=== PATIENT | male | born 1965 | race Caucasian/White ===

== ENCOUNTER 2018-11-15 22:12 | Emergency (ER) | payer BC ==
--- NOTE | 2018-11-15 22:36 | EDM.PDOC ---
ED HPI GENERAL MEDICAL PROBLEM - General Chief Complaint: Upper Extremity Injury/Pain Stated Complaint: WEAK Time Seen by Provider: 11/15/18 22:34 Source of Information: Reports: Patient - History of Present Illness INITIAL COMMENTS - FREE TEXT/NARRATIVE: HISTORY AND PHYSICAL: History of present illness: [Patient presents clinically intoxicated He has several complaints, the first is generalized weakness/fatigue over the last 2 weeks as well as 2 weeks of abdominal pain. 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 and he has some pain associated with the extensor muscles of the left forearm otherwise his exam is normal mild pain consistent with spasm I can reproduce and appreciate spasm over the extensors on the forearm no other injury or trauma, the entire limb is neurovascularly intact with equal investigations chief strength and full range of motion shoulder elbow wrist no redness warmth or swelling no open lesion or bruising ] No fever nausea vomiting chills sweats no chest pain shortness of breath headache dizziness palpitation no bowel or urine symptoms Review of systems: As per history of present illness and below otherwise all systems reviewed and negative. Past medical history: As per history of present illness and as reviewed below otherwise noncontributory. Surgical history: As per history of present illness and as reviewed below otherwise noncontributory. Social history: No reported history of drug or alcohol abuse. Family history: As per history of present illness and as reviewed below otherwise noncontributory. Physical exam: HEENT: Atraumatic, normocephalic, pupils reactive, negative for conjunctival pallor or scleral icterus, mucous membranes moist, throat clear, neck supple, nontender, trachea midline. Lungs: Clear to auscultation, breath sounds equal bilaterally, chest nontender. Heart: S1S2, regular, negative for clicks, rubs, or JVD. Abdomen: Soft, nondistended, tender with deep palpation on the right and left lower quadrants no guarding or rebound Negative for masses or hepatosplenomegaly. Negative for costovertebral tenderness. Pelvis: Stable nontender. Genitourinary: Deferred. Rectal: Deferred. Extremities: Atraumatic, negative for cords or calf pain. Neurovascular unremarkable. Neuro: Awake, alert, oriented. Cranial nerves II through XII unremarkable. Cerebellum unremarkable. Motor and sensory unremarkable throughout. Exam nonfocal. Diagnostics: [CBC CMP UA lipase troponin and CPK Chest [address] abdomen pelvis with contrast ] Therapeutics: [ normal saline ]Profile 100 by mouth now and twice a day #20 no refill Impression: [ alcohol intoxication abdominal pain ]-diverticulitis Muscle spasm left forearm-extensors Definitive disposition and diagnosis as appropriate pending reevaluation and review of above. - Related Data Allergies Allergy/AdvReac Type Severity Reaction Status Date / Time No Known Allergies Allergy Verified 11/15/18 23:23 Home Meds: Home Meds . [No Known Home Meds] 11/15/18 [History] Review of Systems - Review of Systems Review Of Systems: See Below ED EXAM, GENERAL - Physical Exam Exam: See Below Course - Vital Signs Last Recorded V/S: Last Vital Signs Temp 96.9 F 11/15/18 22:16 Pulse 89 11/15/18 23:29 Resp 18 11/15/18 23:29 BP 116/72 11/15/18 23:29 Pulse Ox 95 11/15/18 23:29 - Orders/Labs/Meds Orders: Active Orders 24 hr Category Date Time Status EKG Documentation Completion [RC] STAT Care 11/15/18 22:17 Active Ciprofloxacin [Ciprofloxacin HCl] Med 11/16/18 00:32 Once 500 mg PO ONETIME ONE Pantoprazole [ProTONIX IV] 80 mg Med 11/15/18 22:39 Active Sodium Chloride 0.9% [Normal Saline] 100 ml IVPUSH BOLUS Medication Orders Pantoprazole Sodium 80 mg/ (Sodium Chloride) 100 mls @ 10 mls/hr IVPUSH BOLUS ONE Stop: 11/16/18 08:38 Last Admin: 11/15/18 23:25 Dose: 10 mls/hr Labs: Laboratory Tests 11/15/18 11/15/18 11/15/18 Range/Units 22:42 22:42 22:42 WBC 5.02 (4.0-11.0) K/uL RBC 4.96 (4.50-5.90) M/uL Hgb 15.3 (13.0-17.0) g/dL Hct 45.4 (38.0-50.0) % MCV 91.5 (80.0-98.0) fL MCH 30.8 (27.0-32.0) pg MCHC 33.7 (31.0-37.0) g/dL RDW Std Deviation 44.2 (28.0-62.0) fl RDW Coeff of Swati 13 (11.0-15.0) % Plt Count 153 (150-400) K/uL MPV 9.80 (7.40-12.00) fL Neut % (Auto) 38.8 L (48.0-80.0) % Lymph % (Auto) 47.6 H (16.0-40.0) % [place] % (Auto) 10.2 (0.0-15.0) % Eos % (Auto) 2.8 (0.0-7.0) % Baso % (Auto) 0.6 (0.0-1.5) % Neut # (Auto) 2.0 (1.4-5.7) K/uL Lymph # (Auto) 2.4 (0.6-2.4) K/uL [place] # (Auto) 0.5 (0.0-0.8) K/uL Eos # (Auto) 0.1 (0.0-0.7) K/uL Baso # (Auto) 0.0 (0.0-0.1) K/uL Nucleated RBC % 0.0 /100WBC Nucleated RBCs # 0 K/uL INR 0.96 Sodium 143 (136-148) mmol/L Potassium 3.4 L (3.5-5.1) mmol/L Chloride 107 (98-107) mmol/L Carbon Dioxide 26.0 (21.0-32.0) mmol/L BUN 15 (7.0-18.0) mg/dL Creatinine 1.0 (0.8-1.3) mg/dL Est Cr Clr Drug Dosing 81.71 mL/min Estimated GFR (MDRD) > 60.0 ml/min Glucose 126 H (74-106) mg/dL Calcium 9.0 (8.5-10.1) mg/dL Total Bilirubin 0.2 (0.2-1.0) mg/dL AST 30 (15-37) IU/L ALT 61 (14-63) IU/L Alkaline Phosphatase 70 (46-116) U/L Creatine Kinase 147 (26-308) U/L Troponin I < 0.050 (0.000-0.056) ng/mL Total Protein 7.7 (6.4-8.2) g/dL Albumin 3.8 (3.4-5.0) g/dL Globulin 3.9 (2.6-4.0) g/dL Albumin/Globulin Ratio 1.0 (0.9-1.6) Lipase 208 (73-393) U/L TSH 3rd Generation 3.16 (0.36-3.74) uIU/mL Urine Color Urine Appearance Urine pH (5.0-8.0) Ur Specific [place] (1.001-1.035) Urine Protein (NEGATIVE) mg/dL Urine Glucose (UA) (NEGATIVE) mg/dL Urine Ketones (NEGATIVE) mg/dL Urine Occult Blood (NEGATIVE) Urine Nitrite (NEGATIVE) Urine Bilirubin (NEGATIVE) Urine Urobilinogen (<2.0) EU/dL Ur Leukocyte Esterase (NEGATIVE) Ethyl Alcohol mg/dL 11/15/18 11/15/18 Range/Units 22:42 23:45 WBC (4.0-11.0) K/uL RBC (4.50-5.90) M/uL Hgb (13.0-17.0) g/dL Hct (38.0-50.0) % MCV (80.0-98.0) fL MCH (27.0-32.0) pg MCHC (31.0-37.0) g/dL RDW Std Deviation (28.0-62.0) fl RDW Coeff of Swati (11.0-15.0) % Plt Count (150-400) K/uL MPV (7.40-12.00) fL Neut % (Auto) (48.0-80.0) % Lymph % (Auto) (16.0-40.0) % [place] % (Auto) (0.0-15.0) % Eos % (Auto) (0.0-7.0) % Baso % (Auto) (0.0-1.5) % Neut # (Auto) (1.4-5.7) K/uL Lymph # (Auto) (0.6-2.4) K/uL [place] # (Auto) (0.0-0.8) K/uL Eos # (Auto) (0.0-0.7) K/uL Baso # (Auto) (0.0-0.1) K/uL Nucleated RBC % /100WBC Nucleated RBCs # K/uL INR Sodium (136-148) mmol/L Potassium (3.5-5.1) mmol/L Chloride (98-107) mmol/L Carbon Dioxide (21.0-32.0) mmol/L BUN (7.0-18.0) mg/dL Creatinine (0.8-1.3) mg/dL Est Cr Clr Drug Dosing mL/min Estimated GFR (MDRD) ml/min Glucose (74-106) mg/dL Calcium (8.5-10.1) mg/dL Total Bilirubin (0.2-1.0) mg/dL AST (15-37) IU/L ALT (14-63) IU/L Alkaline Phosphatase (46-116) U/L Creatine Kinase (26-308) U/L Troponin I (0.000-0.056) ng/mL Total Protein (6.4-8.2) g/dL Albumin (3.4-5.0) g/dL Globulin (2.6-4.0) g/dL Albumin/Globulin Ratio (0.9-1.6) Lipase (73-393) U/L TSH 3rd Generation (0.36-3.74) uIU/mL Urine Color YELLOW Urine Appearance CLEAR Urine pH 5.0 (5.0-8.0) Ur Specific [place] 1.020 (1.001-1.035) Urine Protein NEGATIVE (NEGATIVE) mg/dL Urine Glucose (UA) NEGATIVE (NEGATIVE) mg/dL Urine Ketones NEGATIVE (NEGATIVE) mg/dL Urine Occult Blood NEGATIVE (NEGATIVE) Urine Nitrite NEGATIVE (NEGATIVE) Urine Bilirubin NEGATIVE (NEGATIVE) Urine Urobilinogen 0.2 (<2.0) EU/dL Ur Leukocyte Esterase NEGATIVE (NEGATIVE) Ethyl Alcohol 207 mg/dL Meds: Medications Generic Name Dose Route Start Last Admin Trade Name Freq PRN Reason Stop Dose Admin Pantoprazole Sodium 80 mg/ 100 mls @ 10 mls/hr 11/15/18 22:39 11/15/18 23:25 Sodium Chloride IVPUSH 11/16/18 08:38 10 mls/hr BOLUS ONE Administration Discontinued Medications Generic Name Dose Route Start Last Admin Trade Name Freq PRN Reason Stop Dose Admin Iopamidol 100 ml 11/15/18 23:38 11/15/18 23:58 Isovue-370 (76%) IVPUSH 11/15/18 23:39 100 ml ONETIME ONE Administration Pantoprazole Sodium Confirm 11/15/18 23:09 11/15/18 23:56 Protonix Iv Administered 11/15/18 23:10 Not Given Dose 80 mg .ROUTE .STK-MED ONE Departure - Departure Time of Disposition: 00:33 Disposition: Home, Self-Care 01 Condition: Good Clinical Impression: Diverticulitis, Muscle spasm - Discharge Information Referrals: PCP,None [Primary Care Provider] - Forms: ED Department Discharge Additional Instructions: Medication as prescribed Return if symptoms persist or worsen Patient and his significant other will be taking a cab home Follow-up with primary care in 2 weeks sooner as needed [facility] [address] [place] [id number] The following information is given to patients seen in the emergency department who are being discharged to home. This information is to outline your options for follow-up care. We provide all patients seen in our emergency department with a follow-up referral. The need for follow-up, as well as the timing and circumstances, are variable depending upon the specifics of your emergency department visit. If you don't have a primary care physician on staff, we will provide you with a referral. We always advise you to contact your personal physician following an emergency department visit to inform them of the circumstance of the visit and for follow-up with them and/or the need for any referrals to a consulting specialist. The emergency department will also refer you to a specialist when appropriate. This referral assures that you have the opportunity for follow-up care with a specialist. All of these measure are taken in an effort to provide you with optimal care, which includes your follow-up. Under all circumstances we always encourage you to contact your private physician who remains a resource for coordinating your care. When calling for follow-up care, please make the office aware that this follow-up is from your recent emergency room visit. If for any reason you are refused follow-up, please contact the [facility] emergency department at and asked to speak to the emergency department charge nurse. - My Orders Last 24 Hours: My Active Orders 11/15/18 22:17 EKG Documentation Completion [RC] STAT 11/15/18 22:39 Pantoprazole [ProTONIX IV] 80 mg Sodium Chloride 0.9% [Normal Saline] 100 ml IVPUSH BOLUS 11/16/18 00:32 Ciprofloxacin [Ciprofloxacin HCl] 500 mg PO ONETIME ONE - Assessment/Plan Last 24 Hours: My Active Orders 11/15/18 22:17 EKG Documentation Completion [RC] STAT 11/15/18 22:39 Pantoprazole [ProTONIX IV] 80 mg Sodium Chloride 0.9% [Normal Saline] 100 ml IVPUSH BOLUS 11/16/18 00:32 Ciprofloxacin [Ciprofloxacin HCl] 500 mg PO ONETIME ONE
[2018-11-15] MEDS ORDERED: Pantoprazole 80 MG in Sodium Chloride 0.9% 100 ML IVPUSH ONE (22:39)
--- NOTE | 2018-11-15 22:59 | CR ---
Indication: Abdominal pain. Fatigue. Technique: A single AP portable view of the chest was obtained. Comparison: None Findings: The heart is borderline in size. The lungs are clear. No infiltrate, pleural effusion, or pneumothorax is identified. Impression: Borderline cardiomegaly. Dictated by Oly An MD @ Nov 15 2018 10:57PM Signed by Dr. Oly An @ Nov 15 2018 10:57PM
[2018-11-15] MEDS ORDERED: Pantoprazole 40 MG Vial ONE (23:09)
[2018-11-15 23:20] LABS: CHLORIDE,CL 107 mmol/L (98-107); SODIUM,NA 143 mmol/L (136-148)
[2018-11-15] MEDS ORDERED: Iopamidol 755 Mg/ML 100 ML Bottle IVPUSH ONE (23:38)
--- NOTE | 2018-11-16 00:19 | CT ---
INDICATION: Abdominal pain TECHNIQUE: CT Abdomen and pelvis with i.v. contrast. Coronal and sagittal reformats were obtained. CONTRAST: 100 mL Isovue 370 COMPARISON: None FINDINGS: Lower chest: Unremarkable. Liver: Mild fatty infiltration of the right lobe of the liver seen. Spleen: Unremarkable. Pancreas: Unremarkable. Gallbladder: Unremarkable. Kidney: Unremarkable. No kidney or ureteral stones or obstruction seen. Adrenal: Unremarkable. Bowel: The sigmoid colon is highly redundant and has focal wall thickening with surrounding inflammatory changes near the superior turn. The appendix is normal in appearance and size. Vascular: Unremarkable. Lymph: Unremarkable. Peritoneum: Unremarkable. No pneumoperitoneum is seen. No significant ascites is noted. Pelvis: Mild diffuse bladder wall thickening is noted. Soft tissue: Unremarkable. Bone: Unremarkable for age. IMPRESSIONS: 1. The sigmoid colon is highly redundant and has focal wall thickening with surrounding inflammatory changes near the superior turn. Findings are likely due to acute diverticulitis. 2. Mild diffuse bladder wall thickening is noted. This may be due to urinary tract infection, or cystitis. Dictated by Johnie Rich MD @ 11/16/2018 12:16:09 AM Please note that all CT scans at this facility use dose modulation, iterative reconstruction, and/or weight-based dosing when appropriate to reduce radiation dose to as low as reasonably achievable. Dictated by: Johnie Rich MD @ 11/16/2018 00:16:17 (Electronically Signed)
[2018-11-16] MEDS ORDERED: Ciprofloxacin 500 MG Tab PO ONE (00:32)
== END 2018-11-16 00:58 | disposition home or self-care (01) ==
LOC: MW.ED 22:12
DX: K57.32 Diverticulitis of large intestine without perforation or abscess without bleeding (principal); M62.838 Other muscle spasm; F10.129 Alcohol abuse with intoxication, unspecified; Y90.7 Blood alcohol level of 200-239 mg/100 ml
CPT/HCPCS: 36415; 71045; 74177; 80053; 81003; 82550; 83690; 84443; 84484; 85025; 85610; 93005; 96374; 99284; A9270; C9113; G0480; J7030; Q9967

== ENCOUNTER 2020-04-16 13:35 | Emergency (ER) | payer BC ==
[2020-04-16] MEDS ORDERED: Sodium Chloride 0.9% 2.5 ML Syringe FLUSH PRN (13:37)
[2020-04-16] MEDS ORDERED: Sodium Chloride 0.9% 10 ML Syringe FLUSH PRN (13:37)
[2020-04-16] MEDS ORDERED: LORazepam 2 MG/ML SDV IVPUSH ONE (13:37)
[2020-04-16] MEDS ORDERED: Sodium Chloride 0.9% 1,000 ML IV ONE (13:37)
[2020-04-16] MEDS ORDERED: Diphtheria,Pertussis(Acell),Tetanus Vaccine 0.5 ML Syringe IM ONE ×2 (13:41→14:06)
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
[2020-04-16 14:20] LABS: BLOOD UREA NITROGEN,BUN 11 mg/dL (7.0-18.0); CARBON DIOXIDE,CO2 27.2 mmol/L (21.0-32.0); CHLORIDE,CL 102 mmol/L (98-107); GLUCOSE RANDOM 94 mg/dL (74-106); POTASSIUM,K 3.8 mmol/L (3.5-5.1); SODIUM,NA 141 mmol/L (136-148)
--- NOTE | 2020-04-16 14:22 | CT ---
INDICATION: Patient fell today. Acute mental status changes. Trauma. Poor historian due to intoxication. TECHNIQUE: CT head without IV contrast. FINDINGS: No intracranial hemorrhage, edema, or mass effect. Small to moderate amounts of loculated fluid and nodular mucosal thickening in the maxillary sinuses with probable retention cyst in the inferior left maxillary sinus. Large amount of fluid in the right sphenoid sinus with associated mucosal thickening. Small amount of fluid mucosal thickening left sphenoid sinus. Minimal mucosal thickening in the left frontal sinus. Small amounts of fluid and mucosal thickening in a few ethmoidal sinuses. Findings consistent with mild to moderate sinusitis. No intracranial hemorrhage, edema, or mass effect. Mild cerebral and cerebellar atrophy. Remainder negative. IMPRESSION: 1. No acute intracranial disease including no intracranial hemorrhage. 2. Mild cerebral and cerebral atrophy. 3. Hjlb-yi-jyrgqvko sinusitis. Please note that all CT scans at this facility use dose modulation, iterative reconstruction, and/or weight-based dosing when appropriate to reduce radiation dose to as low as reasonably achievable. Dictated by Beltran Parikh MD @ Apr 16 2020 2:20PM Signed by Dr. Beltran Parikh @ Apr 16 2020 2:21PM
[2020-04-16] MEDS ORDERED: Diphtheria,Pertussis(Acell),Tetanus Vaccine 0.5 ML Syringe ONE (14:26)
--- NOTE | 2020-04-16 14:28 | CT ---
INDICATION: Patient fell today. Acute mental status changes. Trauma. Poor historian due to intoxication. TECHNIQUE: CT cervical spine without IV contrast including axial, coronal, and sagittal images. FINDINGS: Large amount of fluid with mild mucosal thickening in the right sphenoid sinus. Small amount of fluid and mucosal thickening left sphenoid sinus. Small amounts of fluid and mucosal thickening in bilateral ethmoidal sinuses. Mild to moderate loculated fluid and mucosal thickening in the bilateral maxillary sinuses with apparent retention cyst in the inferior left maxillary sinus. Findings consistent sinusitis. No acute fracture or subluxation in cervical spine. Mild degenerative changes in the cervical spine including minimal hypertrophic changes and mild to moderate narrowing of the C5 through C7 interspaces. Increased number of small to mildly enlarged lymph nodes in the neck and lower face bilaterally the largest of which is in the right upper neck at the lower mandible along the anterior internal jugular chain measuring 1.4 cm. I suspect these lymph nodes are reactive or inflammatory in nature. Soft tissue nodule associated with the anterior aspect the left parotid gland should be a small lymph node. Remainder negative. IMPRESSION: 1. No acute fracture or subluxation in the cervical spine. 2. Ohne-mo-hrwjnvis sinusitis. 3. Mild degenerative changes in the cervical spine. Other findings as above. Please note that all CT scans at this facility use dose modulation, iterative reconstruction, and/or weight-based dosing when appropriate to reduce radiation dose to as low as reasonably achievable. Dictated by Beltran Parikh MD @ Apr 16 2020 2:26PM Signed by Dr. Beltran Parikh @ Apr 16 2020 2:26PM
--- NOTE | 2020-04-16 14:30 | CR ---
INDICATION: Trauma. Fall. TECHNIQUE: AP portable chest x-ray. FINDINGS: Very shallow inspiration. Heart size normal. Mild opacity in the right lung base could be related atelectasis or small amount of infiltrate. Repeat chest x-ray with better inspiration could distinguish between these etiologies. Chest otherwise negative. Dictated by Beltran Parikh MD @ Apr 16 2020 2:15PM Signed by Dr. Beltran Parikh @ Apr 16 2020 2:28PM
[2020-04-16] MEDS ORDERED: Octyl 2-Cyanoacrylate 1 Tube ONE (14:31)
--- NOTE | 2020-04-16 14:32 | CR ---
INDICATION: Trauma. Fall. TECHNIQUE: AP pelvis. FINDINGS: Film is underpenetrated. Lobulated area of increased soft tissue density along the left superior pubic ramus measuring 3-4 cm and is of indeterminate etiology. Soft tissue density such as a hematoma could cause this. No definite acute fracture or dislocation in pelvis or hips. Chronic irregularity involving the superior lateral iliac bones benign. Mild [id number] degenerative changes lower lumbar spine. Mild degenerative changes SI joints. Remainder negative. Dictated by Beltran Parikh MD @ Apr 16 2020 2:15PM Signed by Dr. Beltran Parikh @ Apr 16 2020 2:31PM
[2020-04-16] MEDS ORDERED: Octyl 2-Cyanoacrylate 1 Tube TOP ONE (14:33)
[2020-04-16] MEDS ORDERED: Iopamidol 755 MG/ML 500 ML Multipack Bottle IVPUSH ONE (15:35)
--- NOTE | 2020-04-16 16:10 | CT ---
INDICATION: Alcohol intoxication, transient alteration of awareness, complains of thoracic and lumbar chest pain from fall TECHNIQUE: CT chest with i.v. contrast during the venous phase. Coronal and sagittal reformats were obtained. CONTRAST: 100 mL Isovue 370 COMPARISON: None FINDINGS: Cardiovascular: The heart has an unremarkable appearance and size. The pulmonary arteries are unremarkable in appearance. No sign of aneurysm or dissection in the thoracic aorta. Mediastinum: No mass or adenopathy seen. Lung: No pulmonary contusion, laceration or pneumothorax is seen. Mild ground-glass atelectasis present both lung bases. Pleura and pericardium: No sign of pleural effusion seen. No significant pericardial effusion is present. Chest wall and axilla: No mass or adenopathy seen. Bone: The thoracic spinal findings are discussed on separate report. IMPRESSION: 1. Unremarkable CT appearance of the chest. Dictated by Johnie Rich MD @ 04/16/2020 4:08:40 PM Prelim Report By Dr. Johnie Rich @ 04/16/2020 4:08:41 PM ADDENDUM There are 2 small pulmonary nodules present in the dome of the right middle lobe on images 54-55, measuring 3-4 mm. Given the left renal mass, these should be viewed with suspicion for metastatic disease and imaging follow up is recommended in 3 months. This finding and recommendation were discussed with Dr. Tavares at 4:13 PM. Please note that all CT scans at this facility use dose modulation, iterative reconstruction, and/or weight-based dosing when appropriate to reduce radiation dose to as low as reasonably achievable. Dictated by: MD @ 04/16/2020 16:13:27 (Electronically Signed)
--- NOTE | 2020-04-16 16:14 | CT ---
INDICATION: Trauma. TECHNIQUE: CT images of the thoracic spine were reformatted from the chest and abdomen following intravenous contrast. COMPARISON: CT abdomen pelvis 11/15/2018. FINDINGS: The thoracic kyphosis is preserved. Mild chronic anterior wedging of the T7 and T8 vertebral bodies. No acute fracture or spondylolisthesis. Small Schmorl`s nodes from T5-6 through T11-12. Mild multilevel facet arthropathy. No high-grade osseous spinal canal or neural foraminal stenosis. IMPRESSION: 1. No acute fracture or spondylolisthesis. 2. Small Schmorl`s nodes in the mid and lower thoracic spine. Please note that all CT scans at this facility use dose modulation, iterative reconstruction, and/or weight-based dosing when appropriate to reduce radiation dose to as low as reasonably achievable. Dictated by Mario Long MD @ Apr 16 2020 4:08PM Signed by Dr. Mario Long @ Apr 16 2020 4:12PM
--- NOTE | 2020-04-16 16:14 | CT ---
INDICATION: Alcohol intoxication, transient alteration of awareness, complains of thoracic and lumbar abdominal pain on trauma 2nd exam TECHNIQUE: CT Abdomen and pelvis with i.v. contrast. Coronal and sagittal reformats were obtained. CONTRAST: 100 mL Isovue 370 COMPARISON: None FINDINGS: Lower chest: Unremarkable. Liver: Unremarkable. Spleen: Unremarkable. Pancreas: Unremarkable. Gallbladder: Unremarkable. Kidney: There is an enhancing mass present in the lower pole of the left kidney measuring 3.5 cm with an appearance most likely due to renal cell carcinoma. Adrenal: Unremarkable. Bowel: Unremarkable. The appendix is normal in appearance and size. Vascular: Unremarkable. Lymph: Unremarkable. Peritoneum: Unremarkable. No pneumoperitoneum is seen. No significant ascites is noted. Pelvis: Unremarkable. Soft tissue: Unremarkable. Bone: Unremarkable for age. IMPRESSION: 1. There is an enhancing mass present in the lower pole of the left kidney measuring 3.5 cm with an appearance most likely due to renal cell carcinoma. The findings were discussed with Dr. Tavares at 4:13 PM. Dictated by Johnie Rich MD @ 04/16/2020 4:10:53 PM Please note that all CT scans at this facility use dose modulation, iterative reconstruction, and/or weight-based dosing when appropriate to reduce radiation dose to as low as reasonably achievable. Dictated by: Johnie Rich MD @ 04/16/2020 16:13:39 (Electronically Signed)
--- NOTE | 2020-04-16 16:18 | CT ---
INDICATION: Trauma. TECHNIQUE: CT images of the lumbar spine were reformatted from the abdomen and pelvis following intravenous contrast. COMPARISON: CT abdomen pelvis 11/15/2018. FINDINGS: The lumbar lordosis is preserved. Vertebral heights are maintained. No acute fracture or spondylolisthesis. L1-2: No spinal canal or neural foramina narrowing. L2-3: Mild retrolisthesis. Shallow posterior disc bulge. Endplate spondylitic ridging. Mild spinal canal narrowing. Mild bilateral neural foraminal narrowing. L3-4: Trace retrolisthesis. Posterior disc bulge. Endplate spondylitic ridging. Mild bilateral facet arthropathy. Mild spinal canal narrowing. [id number] left and mild right neural foraminal narrowing. L4-5: Posterior disc bulge. Mild bilateral facet arthropathy. Endplate spondylitic ridging. Mild spinal canal narrowing. Moderate bilateral neural foraminal narrowing. L5-S1: Posterior disc bulge. Advanced left and [id number] right facet arthropathy. No spinal canal narrowing. Mild left without right neural foraminal narrowing. Sacroiliac joint degenerative changes. IMPRESSION: 1. No acute fracture or spondylolisthesis. 2. Multilevel lumbar spondylosis without high-grade spinal canal stenosis. Please note that all CT scans at this facility use dose modulation, iterative reconstruction, and/or weight-based dosing when appropriate to reduce radiation dose to as low as reasonably achievable. Dictated by Mario Long MD @ Apr 16 2020 4:12PM Signed by Dr. Mario Long @ Apr 16 2020 4:17PM
== END 2020-04-16 16:40 | disposition home or self-care (01) ==
LOC: MW.ED 13:35
DX: S01.112A Laceration without foreign body of left eyelid and periocular area, initial encounter (principal); C64.2 Malignant neoplasm of left kidney, except renal pelvis; C34.90 Malignant neoplasm of unspecified part of unspecified bronchus or lung; R91.1 Solitary pulmonary nodule; F10.129 Alcohol abuse with intoxication, unspecified; Y90.8 Blood alcohol level of 240 mg/100 ml or more; Z23 Encounter for immunization; W19.XXXA Unspecified fall, initial encounter
CPT/HCPCS: 36415; 70450; 71045; 71260; 72125; 72170; 74177; 80053; 80305; 80307; 83735; 85025; 85610; 86850; 86900; 86901; 90471; 90715; 93005; 96374; 99285; A9270; J2060; J7030; Q9967; 72128-26; 72131-26; 93010

== ENCOUNTER 2025-01-25 20:29 | Emergency (ER) | payer OTHER, BC ==
[2025-01-25] MEDS: fentaNYL 100 MCG/2 ML SDV IVPUSH ONE (20:38)
[2025-01-25] MEDS: Tetracaine HCl/PF 0.5% 4 ML Bottle EYEBOTH ONE (20:38)
[2025-01-25] MEDS: fentaNYL 100 MCG/2 ML SDV ONE (20:42)
[2025-01-25 20:46] LABS: BASOPHILS ABSOLUTE AUTO 0.04 K/uL (0.00-0.20); BASOPHILS PERCENT AUTO 0.6 % (0.0-1.0); EOSINOPHILS ABSOLUTE AUTO 0.15 K/uL (0.00-0.45); EOSINOPHILS PERCENT AUTO 2.1 % (0.0-6.0); IMMATURE GRAN ABSOLUTE AUTO 0.03 K/uL (0.00-0.05); IMMATURE GRAN PERCENT AUTO 0.4 % (0.0-0.4); LYMPHOCYTES ABSOLUTE AUTO 3.73 K/uL (1.00-4.80); LYMPHOCYTES PERCENT AUTO 52.0 % (24.0-44.0); MEAN PLATELET VOLUME 9.5 fL (9.4-12.4); MONOCYTES ABSOLUTE AUTO 0.69 K/uL (0.00-0.80); MONOCYTES PERCENT AUTO 9.6 % (0.0-8.0); NEUTROPHILS ABSOLUTE AUTO 2.53 K/uL (1.80-7.70); NEUTROPHILS PERCENT AUTO 35.3 % (41.0-71.0); NRBC ABSOLUTE 0.00 K/uL (0.00-0.02); NRBC PERCENT 0.0 /100WBC (0.0-0.2); PLATELET COUNT,PLT 161 K/uL (150-400); RED BLOOD CELL COUNT 5.24 M/uL (4.52-5.90); WHITE BLOOD CELL COUNT,WBC 7.17 K/uL (3.9-11.3)
[2025-01-25] MEDS: Diphtheria,Pertussis(Acell),Tetanus Vaccine 0.5 ML Syringe IM ONE (21:00)
[2025-01-25 21:03] LABS: BLOOD UREA NITROGEN,BUN 15 mg/dL (7.0-18.0); CARBON DIOXIDE,CO2 22.6 mmol/L (21.0-32.0); CHLORIDE,CL 104 mmol/L (98-107); CREATININE 1.7 mg/dL (0.8-1.3); GLUCOSE RANDOM 119 mg/dL (74-106); POTASSIUM,K 4.2 mmol/L (3.5-5.1); SODIUM,NA 138 mmol/L (136-148)
[2025-01-25 21:05] LABS: ESTIMATED GFR 46 mL/min (>60)
[2025-01-25] MEDS: Bacitracin Oint 1 GM U/D Packet TOP ONE (22:19)
[2025-01-25] MEDS: Acetaminophen/HYDROcodone 325-10 MG Tab PO STA (22:28)
== END 2025-01-25 22:45 | disposition home or self-care (01) ==
LOC: MW.ED 20:29
DX: S52.511A Displaced fracture of right radial styloid process, initial encounter for closed fracture (principal); S01.81XA Laceration without foreign body of other part of head, initial encounter; S06.0XAA Concussion with loss of consciousness status unknown, initial encounter; V29.608A Unspecified rider of other motorcycle injured in collision with unspecified motor vehicles in traffic accident, initial encounter
CPT/HCPCS: 12011; 29125; 36415; 70450; 70486; 71045; 72125; 72170; 73100; 80048; 85025; 90471; 90715; 96374; 99285; A9270; J2003; J3010; 99284; J3490